=== PATIENT | male | born 1955 | race Caucasian/White ===

== ENCOUNTER 2022-01-03 04:48 | Inpatient (IN) | payer MEDICARE, OTHER ==
[~2022-01-03] VITALS: Ht 182.9 cm; Wt 86.2 kg
--- NOTE | 2022-01-03 05:08 | NUR ---
pt bib emt from [facility] for medical clearance and transfer to in psych. pt is on a 5150.
[2022-01-03] MEDS ORDERED: NICO-780 TD (05:23)
[2022-01-03] MEDS ORDERED: RISP2TAB85 PO (05:23)
[2022-01-03] MEDS ORDERED: ZINC220T3 PO (05:23)
[2022-01-03] MEDS ORDERED: MULT-594 PO (05:23)
[2022-01-03] MEDS ORDERED: FERR325T28 PO (05:23)
[2022-01-03] MEDS ORDERED: NIAC500T2 PO (05:23)
[2022-01-03] MEDS ORDERED: HALOPERIDOL LACTATE 5 MG/1 ML VIAL IM ONE (05:30)
[2022-01-03] MEDS ORDERED: HALOPERIDOL 0.5 MG TABLET PO ONE (05:45)
[2022-01-03] MEDS ORDERED: HALOPERIDOL LACTATE 5 MG/1 ML VIAL ONE (05:51)
[2022-01-03] MEDS ORDERED: HALOPERIDOL 5 MG TABLET ONE (05:54)
--- NOTE | 2022-01-03 06:00 | NUR ---
Transfered to [facility] via gurny with no distress noted.
[2022-01-03] MEDS ORDERED: ACETAMINOPHEN 325 MG TABLET PO PRN (07:00)
[2022-01-03] MEDS ORDERED: TEMAZEPAM 7.5 MG CAPSULE PO PRN (07:00)
[2022-01-03] MEDS ORDERED: MAGNESIUM HYDROXIDE 30 ML LIQUID UDC PO PRN (07:00)
[2022-01-03] MEDS ORDERED: MAG HYDROX/AL HYDROX/SIMETH 30 ML LIQUID UDC PO PRN (07:00)
[2022-01-03 07:30] VITALS: BP 90/53
--- NOTE | 2022-01-03 11:05 | NUR ---
SW Admit Source: Pt brought to [facility] on a 5150 hold for harm to self and be unable to take care of your own food, clothing or chcf. Pt. is currently homeless and will require a SNF placement upon discharge. Pt does not have any family contact information at this time. DEBORAH will continue to work with pt and MD to ensure a safe and proper discharge plan.
--- NOTE | 2022-01-03 11:05 | NUR ---
DEBORAH Initial Discharge Note: Pt brought to [facility] on a 5150 hold for harm to self and be unable to take care of your own food, clothing or mcc. Pt. is currently homeless and will require a SNF placement upon discharge. Pt does not have any family contact information at this time. DEBORAH will continue to work with pt and MD to ensure a safe and proper discharge plan.
[2022-01-03] MEDS: BENZTROPINE MESYLATE 0.5 MG TABLET PO SCH ×2 (12:40→16:49)
[2022-01-03] MEDS: LORAZEPAM 0.5 MG TABLET PO PRN (12:40)
[2022-01-03] MEDS: HALOPERIDOL 5 MG TABLET PO SCH ×2 (12:40→16:49)
[2022-01-03 15:03] VITALS: BP 105/48
--- NOTE | 2022-01-03 17:09 | NUR ---
GPS: Nursing Notes: Thought Disorder: Patient is awake and responding to his name, impaired judgment, resistant with nursing care, unkempt appearance, labile, unpredictable behavior, internally preoccupied at times, overly demanding at times, loud and pressured speech, walking toward staff personal space, redirected, but gets easily angry toward staff, needed a lot prompting to be compliant with shower, unkempt appearance, disorganized, episodes of mumbling to self, denies SI/HI, continue to monitor for safety, continue with treatment plan.
[2022-01-03 20:00] VITALS: BP 128/47
[2022-01-03] MEDS: TEMAZEPAM 15 MG CAPSULE PO PRN (21:19)
--- NOTE | 2022-01-04 06:34 | NUR ---
patient sleeping most of shift, with episode of yelling and screaming ,respond to internal stimuli taking to self.wound care consult ordered,keep skin dry and clean .
[2022-01-04 07:30] VITALS: BP 123/48
[2022-01-04 08:18] LABS: BILIRUBIN,TOTAL 0.4 mg/dL (0.2-1.0); CREATININE 0.7 mg/dL (0.6-1.3); POTASSIUM 4.5 mmol/L (3.5-5.1); TOTAL PROTEIN, SERUM 8.4 g/dL (6.4-8.2)
[2022-01-04] MEDS: BENZTROPINE MESYLATE 0.5 MG TABLET PO SCH ×3 (09:00→21:35)
[2022-01-04] MEDS: HALOPERIDOL 5 MG TABLET PO SCH ×3 (09:00→17:00)
--- NOTE | 2022-01-04 09:56 | NUR ---
PT RECEIVED ON BED, SLEEPING. PT HAD BREAKFAST TODAY AND WENT BACK TO SLEEP. ISOLATIVE. NO AGITATION OF THIS TIME. NO AM MEDICATION NOTED.
[2022-01-04 16:00] VITALS: BP 131/59
--- NOTE | 2022-01-04 20:08 | NUR ---
UNABLE TO GIVE 1700 MEDS DUE TO ACCESS PROBLEM WITH PYXIES. PHOTOGRAPHIC EDITOR NURSES WILL TRY TO GET IT AVAILABLE FOR PT. MAYNOR MADE AWARE.
[2022-01-04] MEDS ORDERED: HALOPERIDOL 5 MG TABLET PO SCH (21:00)
[2022-01-04] MEDS: LORAZEPAM 0.5 MG TABLET PO PRN (23:12)
--- NOTE | 2022-01-05 06:01 | NUR ---
Received to care, lying in bed, easily agitated, but compliant with medications. PRN Ativan was given at 2312. He slept well. No distress, noted.
[2022-01-05 07:30] VITALS: BP 109/59
[2022-01-05] MEDS: BENZTROPINE MESYLATE 0.5 MG TABLET PO SCH ×3 (13:00→16:57)
[2022-01-05] MEDS: OXCARBAZEPINE 150 MG TABLET PO SCH ×2 (13:16→16:57)
[2022-01-05 16:00] VITALS: BP 122/92
--- NOTE | 2022-01-05 16:11 | NUR ---
Gps/Application Architect Manager- Remains in his room in bed most of the time, encouraged to attend group therapy, had been compliant with routine meds. Dressing to right side of his neck abd. dressing intact, secured. Discouraged patient from picking on it
[2022-01-05] MEDS: HALOPERIDOL 5 MG TABLET PO SCH ×2 (16:57→20:17)
[2022-01-05 20:00] VITALS: BP 110/51
[2022-01-05] MEDS: TEMAZEPAM 15 MG CAPSULE PO PRN (21:30)
--- NOTE | 2022-01-06 06:07 | NUR ---
Received to care, lying in bed, easily agitated, but compliant with medications. Tore off his dressing, which was redressed, and he calmed down. PRN Restoril was given at 2230. He slept well. No distress, noted.
[2022-01-06 07:30] VITALS: BP 119/58
[2022-01-06] MEDS: OXCARBAZEPINE 150 MG TABLET PO SCH (08:52)
[2022-01-06] MEDS: HALOPERIDOL 5 MG TABLET PO SCH ×3 (08:52→20:49)
[2022-01-06] MEDS: BENZTROPINE MESYLATE 0.5 MG TABLET PO SCH ×3 (08:52→18:07)
--- NOTE | 2022-01-06 11:43 | NUR ---
Gps/Case Folder- Patient removed previous dressings requesting to have dressing changed. Noted scanty bleeding instructed patient note to pick on his wounds, patient denies picking on it, gets irritable when instructed not to touch wound dressings.
[2022-01-06] MEDS: LORAZEPAM 0.5 MG TABLET PO PRN (12:23)
[2022-01-06] MEDS: OXCARBAZEPINE 300 MG TABLET PO SCH ×2 (12:23→18:06)
--- NOTE | 2022-01-06 14:00 | NUR ---
Gps/Regrinder Operator- Showered self after set up, right side of neck wound redressed.
[2022-01-06 17:30] VITALS: BP 122/63
[2022-01-06 20:24] VITALS: BP 116/60
[2022-01-06] MEDS: TEMAZEPAM 15 MG CAPSULE PO PRN (22:03)
--- NOTE | 2022-01-07 04:21 | NUR ---
Received lying in bed. appears calmer tonight. PRN restoril given at bedtime. Has slept well tonight. neck wound appeared almost healed on 01/05. pt was seen picking on it and pulls off dressing several times a day. wound now appears open red and moist. no drainage noted. cleansed with ns and redressed. Pt was encouraged to leave dressing on, and his hands clean, and to not pick at it.
[2022-01-07 08:09] VITALS: BP 124/82
[2022-01-07] MEDS: BENZTROPINE MESYLATE 0.5 MG TABLET PO SCH ×3 (09:03→16:50)
[2022-01-07] MEDS: HALOPERIDOL 5 MG TABLET PO SCH ×3 (09:03→21:05)
[2022-01-07] MEDS: OXCARBAZEPINE 300 MG TABLET PO SCH ×3 (09:03→16:50)
[2022-01-07 16:26] VITALS: BP 109/48
[2022-01-07 20:00] VITALS: BP 115/59
--- NOTE | 2022-01-08 06:39 | NUR ---
PATIENT SLEPT FOR 10 HOURS, STAYED IN HIS ROOM MOST OF THE SHIFT, RIGHT SIDE OF NECK WOUND RAW PINK IN COLOR, DRESSING WAS CHANGED, COOPERATIVE WITH MEDICATIONS, CONT TO MONITOR.
[2022-01-08 07:49] VITALS: BP 105/59
[2022-01-08] MEDS: OXCARBAZEPINE 300 MG TABLET PO SCH ×3 (09:35→16:59)
[2022-01-08] MEDS: BENZTROPINE MESYLATE 0.5 MG TABLET PO SCH ×3 (09:35→17:00)
[2022-01-08] MEDS: HALOPERIDOL 5 MG TABLET PO SCH ×3 (09:35→20:52)
[2022-01-08 16:45] VITALS: BP 93/55
--- NOTE | 2022-01-08 18:19 | NUR ---
In bed arousable. No distress. Denies pain. Right side of neck still appears raw pink in color pt keeps picking on it. Informed not to pick on wound this will cause infection. Dressing changed. Pt is comfortable. Needs attended to. Will cont to monitor.
[2022-01-08 20:17] VITALS: BP 104/56
[2022-01-09 07:54] VITALS: BP 116/66
[2022-01-09] MEDS: OXCARBAZEPINE 300 MG TABLET PO SCH ×3 (09:03→17:20)
[2022-01-09] MEDS: HALOPERIDOL 5 MG TABLET PO SCH ×4 (09:03→20:45)
[2022-01-09] MEDS: BENZTROPINE MESYLATE 0.5 MG TABLET PO SCH ×3 (09:04→17:20)
[2022-01-09] MEDS: LORAZEPAM 0.5 MG TABLET PO PRN (14:37)
--- NOTE | 2022-01-09 15:22 | NUR ---
GPS: Nursing Notes: Thought Disorder: Patient is awake and responding to his name, unkempt appearance, resistant with nursing care, episodes of talking to unseen others, removing the dressing from his wound, stated "I am removing the particles that are coming from my neck.. I have this problem for a long time...", redirected and reoriented to reality during shift, loud and pressured speech, talking to unseen others when pacing the hallway, continue to monitor for safety, continue with treatment plan.
[2022-01-09 16:24] VITALS: BP 103/53
[2022-01-09 20:00] VITALS: BP 112/57
--- NOTE | 2022-01-10 05:17 | NUR ---
Received patient at the start of the shift asking for " Milk and orange juice ". This speech writer informed patient that snacks were given at 2030. The patient proceeded to follow staff around and continually kept asking. Not responding to redirection at that time. There was blood on the patients shirt d/t picking at the wound on his neck. This speech writer put in another order for a wound consult because none had been done so far , despite the the previous order. During the night , the patient was up asking again for fluids again. At that time, the patient took a shower and the dressing was changed on his neck. During the dressing change the patient became belligerent and verbally abusive to this speech writer. Total sleep was 6.25. Safety Stratiges are in place. Continuing to monitor for behavior escalation.
[2022-01-10 08:00] VITALS: BP 114/63
[2022-01-10] MEDS: BENZTROPINE MESYLATE 0.5 MG TABLET PO SCH ×3 (08:34→16:55)
[2022-01-10] MEDS: OXCARBAZEPINE 300 MG TABLET PO SCH ×4 (08:34→21:39)
[2022-01-10] MEDS: LORAZEPAM 0.5 MG TABLET PO PRN ×3 (08:34→21:38)
[2022-01-10] MEDS: HALOPERIDOL 5 MG TABLET PO SCH ×4 (08:34→21:37)
--- NOTE | 2022-01-10 11:50 | NUR ---
GPS: Nursing Notes: Thought Disorder: Patient is awake and responding to his name, poor grooming, loud and pressured speech, resistant with nursing care, pulling his dressing out from his wound, responding to internal stimuli by talking to unseen others while pacing the hallway, redirected and reoriented during shift, unable to formulate a viable plan for self care, refusing to participate in therapeutic groups, continue to monitor for safety, continue with treatment plan.
[2022-01-10 16:00] VITALS: BP 105/57
[2022-01-10 20:00] VITALS: BP 108/53
[2022-01-11 07:44] VITALS: BP 135/75
[2022-01-11 07:47] LABS: HEMATOCRIT 34.5 % (36.7-47.1); MEAN CORPUSCULAR HEMOGLOBIN 28.1 uug (23.8-33.4); MEAN CORPUSCULAR VOLUME 83.8 fL (73.0-96.2); PLATELET COUNT (AUTO) 236 K/uL (152-348)
[2022-01-11 08:04] LABS: THYROID STIMULATING HORMONE 0.811 mIU/mL (0.358-3.740)
[2022-01-11 08:19] LABS: BILIRUBIN,TOTAL 0.2 mg/dL (0.2-1.0); CREATININE 0.7 mg/dL (0.6-1.3); PHOSPHOROUS 3.9 mg/dL (2.5-4.9); POTASSIUM 4.6 mmol/L (3.5-5.1); TOTAL PROTEIN, SERUM 7.9 g/dL (6.4-8.2)
[2022-01-11] MEDS: HALOPERIDOL 5 MG TABLET PO SCH ×4 (09:24→20:30)
[2022-01-11] MEDS: BENZTROPINE MESYLATE 0.5 MG TABLET PO SCH ×3 (09:24→17:04)
[2022-01-11] MEDS: CYANOCOBALAMIN 1,000 MCG TABLET PO SCH (09:24)
[2022-01-11] MEDS: OXCARBAZEPINE 300 MG TABLET PO SCH ×4 (09:24→20:31)
[2022-01-11 16:00] VITALS: BP 136/78
--- NOTE | 2022-01-11 17:26 | NUR ---
Received patient awake in her room. A/O X 2 - 3 to person, place. Pt. is demanding, needy, fixated on snacks, agitated and irritable at times. Ambulates without assistance. Compliant with medications. Denies pain or any discomfort. Denies SI/HI AH/VH. Respirations are regular and unlabored. Patient appearance is disheveled. Wound on his neck was treated with Xeroform Petrolatum and dressing. Active listening provided. Fall and safety precautions implemented.
[2022-01-11 20:19] VITALS: BP 105/59
[2022-01-12 08:00] VITALS: BP 123/65
[2022-01-12] MEDS: LORAZEPAM 0.5 MG TABLET PO PRN (08:42)
[2022-01-12] MEDS: CYANOCOBALAMIN 1,000 MCG TABLET PO SCH (08:42)
[2022-01-12] MEDS: HALOPERIDOL 5 MG TABLET PO SCH ×4 (08:42→21:13)
[2022-01-12] MEDS: OXCARBAZEPINE 300 MG TABLET PO SCH ×4 (08:44→21:00)
[2022-01-12] MEDS: BENZTROPINE MESYLATE 0.5 MG TABLET PO SCH ×3 (08:46→16:58)
[2022-01-12] MEDS: GABAPENTIN 300 MG CAPSULE PO SCH ×3 (12:46→21:18)
[2022-01-12 16:00] VITALS: BP 119/71
[2022-01-12 20:00] VITALS: BP 112/62
[2022-01-13 07:30] VITALS: BP 115/56
[2022-01-13] MEDS: OXCARBAZEPINE 300 MG TABLET PO SCH ×4 (08:36→20:14)
[2022-01-13] MEDS: BENZTROPINE MESYLATE 0.5 MG TABLET PO SCH ×3 (08:36→16:30)
[2022-01-13] MEDS: HALOPERIDOL 5 MG TABLET PO SCH ×4 (08:36→20:14)
[2022-01-13] MEDS: GABAPENTIN 300 MG CAPSULE PO SCH ×3 (08:36→16:30)
[2022-01-13] MEDS: CYANOCOBALAMIN 1,000 MCG TABLET PO SCH (08:37)
--- NOTE | 2022-01-13 14:56 | NUR ---
Gps/Music Educator- Had late lunch, patient was asleep , stayed in the activity room , watching TV , denies pain, no discomfort, able to verbalized simple needs., no interactions noted with his peers.
--- NOTE | 2022-01-13 15:26 | NUR ---
Gps/Press Operator Assistant- Patient removed dressings to his right neck wound , wants to have it done right away, and left old dressing by the door of the Nurses station, discouraged patient from removing dressings until staff are ready to redressed his wound.Site cleansed with NS pat dry, covered with xeroform gauze and boarder dressings
[2022-01-13 15:33] VITALS: BP 114/46
[2022-01-13 19:57] VITALS: BP 92/49
--- NOTE | 2022-01-14 05:26 | NUR ---
Katt slept very well; he was compliant with his meds; snacks last night and rested well; safety maintained; continue to monitor; continue plan of care.
[2022-01-14 07:30] VITALS: BP 118/58
--- NOTE | 2022-01-14 07:45 | NUR ---
Gps/Continuous Pillowcase Cutter- Requesting to have right neck wound be redressed, claimed it bothers his, c/o itching. Sites was cleansed with NS pat dry, xeroform gauze applied, covered with 4x4 & boarder dressings
[2022-01-14] MEDS: CYANOCOBALAMIN 1,000 MCG TABLET PO SCH (08:28)
[2022-01-14] MEDS: HALOPERIDOL 5 MG TABLET PO SCH ×4 (08:28→20:39)
[2022-01-14] MEDS: GABAPENTIN 300 MG CAPSULE PO SCH ×3 (08:28→16:16)
[2022-01-14] MEDS: OXCARBAZEPINE 300 MG TABLET PO SCH ×4 (08:28→20:39)
[2022-01-14] MEDS: BENZTROPINE MESYLATE 0.5 MG TABLET PO SCH ×3 (08:28→16:16)
[2022-01-14 16:00] VITALS: BP 90/52
[2022-01-14 20:00] VITALS: BP 114/63
[2022-01-15] MEDS: GABAPENTIN 300 MG CAPSULE PO SCH ×3 (08:47→16:51)
[2022-01-15] MEDS: HALOPERIDOL 5 MG TABLET PO SCH ×4 (08:48→20:33)
[2022-01-15] MEDS: BENZTROPINE MESYLATE 0.5 MG TABLET PO SCH ×3 (08:48→16:51)
[2022-01-15] MEDS: CYANOCOBALAMIN 1,000 MCG TABLET PO SCH (08:49)
[2022-01-15] MEDS: OXCARBAZEPINE 300 MG TABLET PO SCH ×4 (08:49→20:33)
--- NOTE | 2022-01-15 15:57 | NUR ---
Received patient awake in her room. A/O X 2 - 3 to person, place. Pt. is demanding, needy, isolative, fixated on snacks, and irritable at times. Ambulates independently. Compliant with medications. Denies pain or any discomfort. Denies SI/HI AH/VH. Respirations are regular and unlabored. Patient took shower today. Wound on his neck is treated with Xeroform Petrolatum and dressing, patient keeps taking off dressing and picking on wound with bare hands. Pt. is encourage to verbalize concerns. Fall and safety precautions implemented.
[2022-01-15 16:09] VITALS: BP 119/65
[2022-01-15 20:00] VITALS: BP 117/60
[2022-01-16 07:44] VITALS: BP 113/60
[2022-01-16] MEDS: GABAPENTIN 300 MG CAPSULE PO SCH ×3 (08:26→16:30)
[2022-01-16] MEDS: CYANOCOBALAMIN 1,000 MCG TABLET PO SCH (08:27)
[2022-01-16] MEDS: HALOPERIDOL 5 MG TABLET PO SCH ×4 (08:27→21:30)
[2022-01-16] MEDS: BENZTROPINE MESYLATE 0.5 MG TABLET PO SCH ×3 (08:27→16:30)
[2022-01-16] MEDS: OXCARBAZEPINE 300 MG TABLET PO SCH ×4 (08:27→21:30)
--- NOTE | 2022-01-16 15:32 | NUR ---
GPS: Nursing Notes: Thought Disorder: Patient is awake and responding to his name, episodes of pacing the hallway, resistant with nursing care, argumentative at times, believes that he is leaving today, redirected during shift, setting limits, but still believes that he can go because he is voluntary, stating "I want to home...", patient is homeless, he is on a 5250, and he is not discharge by the psychiatrist today. unable to formulate a viable plan for self care, constantly coming to the nursing station asking to be discharge because he is voluntary, redirected during shift, continue to monitor for safety, continue with treatment plan.
[2022-01-16] MEDS: LORAZEPAM 0.5 MG TABLET PO PRN (16:29)
[2022-01-16 17:12] VITALS: BP 117/59
[2022-01-16 20:15] VITALS: BP 112/56
[2022-01-17 07:30] VITALS: BP 127/42
[2022-01-17] MEDS: OXCARBAZEPINE 300 MG TABLET PO SCH ×4 (08:10→21:19)
[2022-01-17] MEDS: CYANOCOBALAMIN 1,000 MCG TABLET PO SCH (08:10)
[2022-01-17] MEDS: BENZTROPINE MESYLATE 0.5 MG TABLET PO SCH ×3 (08:10→16:16)
[2022-01-17] MEDS: GABAPENTIN 300 MG CAPSULE PO SCH ×3 (08:11→16:16)
[2022-01-17] MEDS: HALOPERIDOL 5 MG TABLET PO SCH ×4 (08:11→21:19)
[2022-01-17] MEDS: LORAZEPAM 0.5 MG TABLET PO PRN ×2 (08:11→12:31)
--- NOTE | 2022-01-17 14:46 | NUR ---
GPS: Nursing Notes: Thought Disorder: Patient is awake responding to his name, poor impulse control at times, argumentative at times, but compliant with his medications, unkempt appearance, minimal mumbling to self at times, following staff directions, unable to formulate a viable plan for self care, need prompting to participate in therapeutic groups, continue to monitor for safety, continue with treatment plan.
--- NOTE | 2022-01-17 14:48 | NUR ---
SNF Referral: DEBORAH sent clinicals to Harry bertrand from [facility] ([phone]) for placement option. SW sent H & P, progress notes, and medication list.
--- NOTE | 2022-01-17 14:49 | NUR ---
SNF Contact: SW spoke with Harry bertrand from [facility] ([phone]) who stated pt is accepted.
[2022-01-17 16:00] VITALS: BP 104/45
[2022-01-17 16:38] LABS: *BILIRUBIN,URIN NEGATIVE (NEGATIVE); *BLOOD, URINE NEGATIVE (NEGATIVE); *CLARITY,URINE CLEAR (CLEAR); *COLOR,URINE YELLOW (YELLOW); *KETONES,URINE NEGATIVE (NEGATIVE); *UROBILINOGEN,URINE 0.2 E.U./dl (NORMAL); LEUKOCYTE ESTERASE ,URINE NEGATIVE (NEGATIVE); NITRITE, URINE NEGATIVE (NEGATIVE); UGLUCOSE NEGATIVE (NEGATIVE)
[2022-01-17] MEDS ORDERED: LORAZEPAM 2 MG/1 ML VIAL IM SCH (17:00)
[2022-01-17 20:15] VITALS: BP 116/46
[2022-01-18 07:30] VITALS: BP 101/50
[2022-01-18 07:43] LABS: HEMATOCRIT 35.6 % (36.7-47.1); MEAN CORPUSCULAR HEMOGLOBIN 28.1 uug (23.8-33.4); MEAN CORPUSCULAR VOLUME 82.9 fL (73.0-96.2); PLATELET COUNT (AUTO) 341 K/uL (152-348)
[2022-01-18 07:52] LABS: BILIRUBIN,TOTAL 0.2 mg/dL (0.2-1.0); CREATININE 0.8 mg/dL (0.6-1.3); POTASSIUM 4.8 mmol/L (3.5-5.1); TOTAL PROTEIN, SERUM 8.4 g/dL (6.4-8.2)
[2022-01-18] MEDS: BENZTROPINE MESYLATE 0.5 MG TABLET PO SCH ×2 (08:56→13:00)
[2022-01-18] MEDS: CYANOCOBALAMIN 1,000 MCG TABLET PO SCH (08:56)
[2022-01-18] MEDS: GABAPENTIN 300 MG CAPSULE PO SCH ×2 (08:56→13:00)
[2022-01-18] MEDS: HALOPERIDOL 5 MG TABLET PO SCH ×2 (08:56→13:00)
[2022-01-18] MEDS: OXCARBAZEPINE 300 MG TABLET PO SCH ×2 (08:56→13:00)
--- NOTE | 2022-01-18 09:00 | NUR ---
Received patient awake in his room. A/O X 3 to person, place. Pt. is calm, cooperative, excited to be discharge from the hospital and finally smoke. Ambulates without assistance. Right neck wound cleanse with normal saline and Xeroform. Denies SI/HI AH/VH. Denies pain. Denies SOB. Compliant with medications. No PRN requested. Emotional support provided. Fall and safety precautions implemented.
--- NOTE | 2022-01-18 09:17 | NUR ---
SW Discharge Note: Patient will be discharged to shelter facility [facility] [address], [place] [address]; ). Please arrange transportation for 11AM. Supervisor Wet Room spoke with Jorge laboratory chemist at [facility]; ([phone]), who stated patient will be accepted today. Patient does not have any family to contact. Patient is alert and oriented x3 and is unable to plan for self-care. Patient denies any suicidal or homicidal ideations. Patient is aware and agreeable with discharge plans. Patient will continue to follow-up with (psychiatrist) Dr. Love [address] [facility] [facility] [address], [place] [address]; ([phone]) and (sustainability consultant) Dr. Pitt [address] [facility] [facility] [address], [place] [address]; ([phone]). Patient presents with euthymic and congruent mood.
--- NOTE | 2022-01-18 13:10 | NUR ---
Received orders to discharged this patient. Pt.denies SOB. Denies SI/HI AH/VH. Denies pain or any discomfort. Compliant with medications and cooperative with nursing care. Patient will be discharged to [facility] facility [facility] [address] [place] [address]; ). Machine Clipper spoke with Jorge forensic audit expert at [facility]; ([phone]), who stated patient will be accepted today. Patient left the unit at 13:00 with [facility]. Fall and safety precautions implemented.
== END 2022-01-18 13:00 | DRG 885 ==
LOC: ER 05:00 → GPS 05:53
PROVIDERS: ADMIT Psychiatry & Neurology Psychosomatic Medicine; ATTEND Internal Medicine
DX: F25.9 Schizoaffective disorder, unspecified (principal); E43 Unspecified severe protein-calorie malnutrition; F29 Unspecified psychosis not due to a substance or known physiological condition; Z59.00 Homelessness unspecified; D50.9 Iron deficiency anemia, unspecified; D63.8 Anemia in other chronic diseases classified elsewhere; Z20.822 Contact with and (suspected) exposure to COVID-19; E53.8 Deficiency of other specified B group vitamins; Z68.25 Body mass index [BMI] 25.0-25.9, adult; S11.90XA Unspecified open wound of unspecified part of neck, initial encounter; X58.XXXA Exposure to other specified factors, initial encounter; Y93.9 Activity, unspecified; Y92.129 Unspecified place in nursing home as the place of occurrence of the external cause
CPT/HCPCS: 36415; 83735; 84100; 84443; 85025; 97161; A4663; A6209; J1630